=== PATIENT | male | born 1980 | race Caucasian/White ===

== ENCOUNTER 2023-08-30 15:47 | Emergency (ER) | payer MEDICAID, SELFPAY ==
[2023-08-30 15:52] VITALS: BP 139/112; PULSE 139; RESP 17; TEMP 36.4; O2SAT 98; BMI 20.5
--- NOTE | 2023-08-30 16:42 | W.ED.ALCOHOL ---
HPI - Alcohol General: Chief Complaint: Alcohol Stated Complaint: possible MHE Time Seen by Provider: 08/30/23 16:20 Source: patient Mode of arrival: ambulatory Limitations: no limitations History of Present Illness: This patient initially thought to have expressed thoughts of harming himself to staff when he initially presented however he admitted to me that he is homeless and is a chronic alcoholic and he was looking for a place to get a shower etc. He states his last drink was approximately 2 hours ago and he really has no intention on quitting alcohol use at this time. He states he has been steady drinker for approximately 20 years with brief periods of sobriety in that time. He does not have any local family is unemployed and is essentially homeless. He denies any other complaints or symptoms at this time. MD complaint: alcohol dependence Chronic alcohol use: Yes Recent trauma: No Associated symptoms: Deny abdominal pain, nausea, suicidal ideation or vomiting Review of Systems Const: Denies: fever(s) or chills Eyes: Denies: change in vision ENMT: Denies: throat pain, odynophagia or nasal congestion Card: Denies: chest pain, palpitations or irregular heart rhythm Resp: Denies: dyspnea, productive cough or non-productive cough GI: Denies: abdominal pain, nausea or vomiting : Denies: difficulty urinating or dysuria Skin/Breast: Denies: rash Neuro: Denies: headache(s), numbness in extremities or weakness in extremities Psych: Denies: visual hallucinations, auditory hallucinations, suicidal ideation or homicidal ideation PFS ED PFSH: Social History (Updated 06/09/21 @ 11:55 by Arielle Whatley LPN) Smoking and tobacco status: never smoked Physical Exam Narrative: EXAM NARRATIVE: The patient is alert makes good eye contact speaks in a goal-directed fashion. Const: COMMON NORMALS: no acute distress, average body habitus, patient oriented x3 and alert GENERAL APPEARANCE: cooperative and comfortable ORIENTATION/CONSCIOUSNESS: Yes awake, Yes oriented to person and Yes oriented to place HENMT: COMMON NORMALS: normocephalic, Normal nasal mucous membranes and turbinates present and moist oral mucous membranes HEAD & SCALP: normocephalic NOSE: Normal nasal mucous membranes and turbinates present Eye: COMMON NORMALS: Equal, round and reactive pupils present, EOMs intact bilaterally and conjunctivae normal CONJUNCTIVA: Yes conjunctivae normal PUPIL: Yes Equal, round and reactive pupils present Neck/C-Spine: COMMON NORMALS: full ROM and Thyroid normal THYROID: Thyroid normal Chest: COMMONS NORMALS: normal inspection of the chest Resp: COMMON NORMALS: normal respiratory effort, No use of accessory muscles and clear to auscultation bilaterally AUSCULTATION: clear to auscultation bilaterally Cardio: COMMON NORMALS: regular rate, regular rhythm, No murmurs present (Cardio) and Peripheral pulses 2+ throughout RATE: regular rate RHYTHM: regular rhythm PERIPHERAL PULSES: Peripheral pulses 2+ throughout GI: COMMON NORMALS: Normal to inspection, nondistended, normoactive bowel sounds present and Soft to palpation PALPATION: Yes Soft to palpation : COMMON NORMALS: Yes no CVA tenderness BLADDER/KIDNEY EXAM: Yes no CVA tenderness Back/Pelvis: COMMON NORMALS: no CVA tenderness, no thoracic nor lumbar tenderness and thoraco-lumbar ROM normal Extremity: COMMON NORMALS: normal to inspection, full ROM, no calf tenderness and no pedal edema Neuro: COMMON NORMALS: patient oriented x3 SENSORIUM/ORIENTATION: Yes alert, Yes oriented to person and Yes oriented to place Psych: COMMON NORMALS: mental status grossly normal, Normal thought process present, normal affect, speech normal, denies homicidal ideation and denies suicidal ideation ACTIVITY/MOTOR BEHAVIOR: Yes appropriate eye contact SPEECH: Yes normal speech THOUGHT PROCESS: Normal thought process present ATTENTION/CONCENTRATION: Yes attention grossly intact JUDGEMENT: Fair judgement present (Psych) Skin: COMMON NORMALS: no rashes or lesions noted and no wounds GENERAL SKIN EXAM: no rashes or lesions noted Course Vital Signs: Vital signs: Vital Signs Temperature 97.6 F 08/30/23 15:52 Pulse Rate 139 H 08/30/23 15:52 Respiratory Rate 17 08/30/23 15:52 Blood Pressure 139/112 08/30/23 15:52 Pulse Oximetry 98 08/30/23 15:52 Oxygen Delivery Me thod Room Air 08/30/23 15:52 MDM - Alcohol Medical Decision Making This patient walked into the emergency department with some suggestion that he might of had some initial thoughts of self-harm however after transporting her back to the examination room and a detailed interview he stated that this was a or a misconception on someone's part that he really is homeless and he was seeking a shower and perhaps a meal etc. He adamantly denied any thoughts of self-harm or harm to others. He is a longstanding alcoholic with brief periods of sobriety. During our interview he maintained good eye contact answers questions in a goal-directed fashion and was quite adamant that he had no ideas of self-harm or harm to others. We explained to him that we did not have any inpatient detox facilities but he did not really want detox and had no desire to discontinue drinking at this time. We were able to give him resources information regarding shelters locally if that he could obtain a shower and temporary domicile. I also gave him alcoholic Anonymous number. We also discussed return precautions and that he was welcome to return at any time. No radiology studies performed this visit Discharge Plan Discharge Patient Disposition: Home Clinical Impression: Chronic alcohol use, Homeless single person Condition: Stable Prescriptions: No Action losartan 50 mg tablet 50 mg PO DAILY buprenorphine-naloxone 8-2 mg tablet, sublingual 1 tab SUBLINGUAL DAILY Biktarvy 50-200-25 mg tablet 1 tab PO DAILY Discharge Orders: Discharge ED (Routine); Ordered 08/30/23 Ordered By: Ben Adam Discharge Diet: Usual diet Discharge Activity: Increase activity as tolerated Patient Instructions: Opioid Safety, Pain Management Activity Restrictions/Additional Instructions: As we discussed you are welcome to return to the emergency department anytime should you have any thoughts of self-harm or harm to others or other concerning symptoms. We strongly recommend that you discontinue your chronic alcohol use. 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
[2023-08-30 16:54] VITALS: PULSE 126; RESP 16; O2SAT 97
[2023-08-30 16:56] VITALS: PULSE 126; RESP 16; O2SAT 97
--- NOTE | 2023-08-30 16:56 | PC.NURSE ---
PHYSICIAN AWARE OF PT HR AT DC.
== END 2023-08-30 16:58 | disposition home or self-care (01) ==
PROVIDERS: Emergency Provider Emergency Medicine
DX: F10.20 Alcohol dependence, uncomplicated (principal); Z59.00 Homelessness unspecified
CPT/HCPCS: 99283